=== PATIENT | female | born 1965 | race Caucasian/White ===

== ENCOUNTER 2016-10-16 21:06 | Emergency (ER) | payer SELFPAY ==
[~2016-10-16] VITALS: Ht 165.1 cm; Wt 75.3 kg
[~2016-10-16 21:06] MED LIST: CIPR500T4 PO; DEXT15TA PO; MEDR4PAK3 PO; METR-1 PO; PERC5TAB12 PO
[2016-10-16 21:14] VITALS: BP 139/90; PULSE 68; RESP 18; TEMP 97.7; O2SAT 97
[2016-10-16] MEDS ORDERED: MELA1TAB18 PO (21:38)
[2016-10-16] MEDS ORDERED: IBUP200C17 PO (21:38)
[2016-10-16] MEDS ORDERED: ASPI81TA5 PO (21:38)
--- NOTE | 2016-10-16 21:45 | PD ---
HPI Chief Complaint: Abdominal Pain Time Seen by Provider: 21:35 Travel History International Travel<30 days: No Contact w/Intl Traveler<30days: No Traveled to known affect area: No History of Present Illness HPI This 51-year-old female is complaining of lower abdominal pain. She says she been having lower abdominal pain for the past 2-1/2 weeks. Tonight it seems worse on the left side. At other days it has been in the midline. She was here a year ago and was diagnosed with diverticulitis. She is not sure if this same pain. She is not aware of fever or chills. This been no vomiting or diarrhea. She has a history of a hysterectomy. PFS Past Medical History ADD: Yes Blood Disorders: No Cancer: No Cardiovascular Problems: No Chemotherapy: No Cerebrovascular Accident: No Diabetes: Yes (Borderline) Patient Takes Glucophage: No Diminished Hearing: No Genitourinary: No Headaches: Yes Immune Disorder: No Musculoskeletal: Yes Neurologic: Yes Reproductive: No Respiratory: No Immunizations Current: No Migraines: Yes Myocardial Infarction: No Radiation Therapy: Yes Renal Failure: No Ulcer: No Tetanus Vaccination: Unknown ?: Unknown Past Surgical History Abdominal Surgery: Yes (ABDOMENOPLASTY) Genitourinary Surgery: Yes (BLADDER SUSPENSION) Hysterectomy: Yes (Parital) Neurologic Surgery: No Tonsillectomy: Yes Other Surgery: Yes (RHINOPLASTY) Social History Alcohol Use: Yes (OCCASIONALLY) Tobacco Use: No Substance Use: No Allergies-Medications (Allergen,Severity, Reaction): Coded Allergies: Bactrim (Verified Allergy, Severe, 10/16/16) Benadryl (Verified Allergy, Severe, 10/16/16) Keflex (Verified Allergy, Severe, 10/16/16) Penicillin (Verified Allergy, Severe, 10/16/16) Reported Meds & Prescriptions Reported Meds & Active Scripts Active Reported Advil Liqui-Gels (Ibuprofen) 200 Mg Capsule PO HS Aspirin DR (Aspirin) 81 Mg Tabdr 81 Mg PO DAILY Melatonin 10 Mg Tab 10 Mg PO HS PRN Review of Systems General / Constitutional: No: Fever Eyes: No: Diploplia, Blurred Vision HENT: No: Headaches, Vertigo Cardiovascular: No: Chest Pain or Discomfort, Palpitations Respiratory: No: Cough, Shortness of Breath Gastrointestinal: Positive: Abdominal Pain, No: Vomiting Genitourinary: No: Frequency, Dysuria Musculoskeletal: No: Myalgias Neurologic: No: Weakness, Dizziness Physical Exam Narrative GENERAL: Well-developed female SKIN: Focused skin assessment warm/dry. HEAD: Atraumatic. Normocephalic. EYES: Pupils equal and round. No scleral icterus. No injection or drainage. ENT: No nasal bleeding or discharge. Mucous membranes pink and moist. NECK: Trachea midline. No JVD. CARDIOVASCULAR: Regular rate and rhythm. No murmur appreciated. RESPIRATORY: No accessory muscle use. Clear to auscultation. Breath sounds equal bilaterally. GASTROINTESTINAL: Abdomen soft, there is some lower abdominal tenderness more so on the left side. No discrete masses felt MUSCULOSKELETAL: No obvious deformities. No clubbing. No cyanosis. No edema. NEUROLOGICAL: Awake and alert. No obvious cranial nerve deficits. Motor grossly within normal limits. Normal speech. PSYCHIATRIC: Appropriate mood and affect; insight and judgment normal. Data Data Last Documented VS Vital Signs Date Time Temp Pulse Resp B/P Pulse Ox O2 Delivery O2 Flow Rate FiO2 10/16/16 21:14 97.7 68 18 139/90 97 Orders Complete Blood Count With Diff (10/16/16 21:41) Comprehensive Metabolic Panel (10/16/16 21:41) Gc And Chlamydia Pcr (10/16/16 21:41) Urinalysis - C+S If Indicated (10/16/16 21:41) Ct Abd/Pel W Iv Contrast(Rout) (10/16/16 21:41) Ondansetron Inj (Zofran Inj) (10/16/16 22:00) Ketorolac Inj (Toradol Inj) (10/16/16 22:00) Iohexol 350 Inj (Omnipaque 350 Inj) (10/16/16 22:58) Labs Laboratory Tests Test 10/16/16 22:00 White Blood Count 9.6 TH/MM3 Red Blood Count 4.38 MIL/MM3 Hemoglobin 13.7 GM/DL Hematocrit 38.9 % Mean Corpuscular Volume 88.7 FL Mean Corpuscular Hemoglobin 31.2 PG Mean Corpuscular Hemoglobin 35.2 % Concent Red Cell Distribution Width 12.3 % Platelet Count 216 TH/MM3 Mean Platelet Volume 8.1 FL Neutrophils (%) (Auto) 55.4 % Lymphocytes (%) (Auto) 33.5 % Monocytes (%) (Auto) 6.9 % Eosinophils (%) (Auto) 3.3 % Basophils (%) (Auto) 0.9 % Neutrophils # (Auto) 5.3 TH/MM3 Lymphocytes # (Auto) 3.2 TH/MM3 Monocytes # (Auto) 0.7 TH/MM3 Eosinophils # (Auto) 0.3 TH/MM3 Basophils # (Auto) 0.1 TH/MM3 CBC Comment DIFF FINAL Differential Comment Urine Color YELLOW Urine Turbidity CLEAR Urine pH 6.0 Urine Specific [place] 1.017 Urine Protein NEG mg/dL Urine Glucose (UA) NEG mg/dL Urine Ketones NEG mg/dL Urine Occult Blood NEG Urine Nitrite NEG Urine Bilirubin NEG Urine Leukocyte Esterase NEG Urine WBC 0-2 /hpf Urine Squamous Epithelial 0-5 /hpf Cells Urine Bacteria RARE /hpf Microscopic Urinalysis Comment CULT NOT INDICATED Sodium Level 143 MEQ/L Potassium Level 3.7 MEQ/L Chloride Level 108 MEQ/L Carbon Dioxide Level 29.2 MEQ/L Anion Gap 6 MEQ/L Blood Urea Nitrogen 15 MG/DL Creatinine 1.00 MG/DL Estimat Glomerular Filtration 58 ML/MIN Rate Random Glucose 111 MG/DL Calcium Level 8.4 MG/DL Total Bilirubin 0.2 MG/DL Aspartate Amino Transf 16 U/L (AST/SGOT) Alanine Aminotransferase 26 U/L (ALT/SGPT) Alkaline Phosphatase 77 U/L Total Protein 6.6 GM/DL Albumin 3.7 GM/DL [facility] Medical Decision Making Medical Screen Exam Complete: Yes Emergency Medical Condition: Yes Medical Record Reviewed: Yes Differential Diagnosis Differential includes diverticulitis, nonspecific abdominal pain, constipation Narrative Course Hemoglobin is 13.7. White count is 9.6. V1 is 20. Urine is negative for infection. CT abdomen and pelvis was obtained and has been read as negative. I discussed the patient's findings with the patient. I am going to treat her for possible diverticulitis in case this is developing but not yet apparent on the scan Diagnosis Primary Impression: Diverticulitis Disposition: 01 DISCHARGE HOME Condition: Stable Bhaskar Gao MD Oct 16, 2016 21:45 Bhaskar Gao MD Oct 16, 2016 21:45
[2016-10-16] MEDS ORDERED: ONDANSETRON HCL 4 MG/2 ML VIAL IV PUSH ONE (22:00)
[2016-10-16] MEDS ORDERED: KETOROLAC TROMETHAMINE 30 MG/ML (IVP) VIAL IV PUSH ONE (22:00)
[2016-10-16 22:08] LABS: AUTOMATED NEUTROPHIL # 5.3 TH/MM3 (1.8-7.7); BASOPHIL # 0.1 TH/MM3 (0-0.2); BASOPHIL % 0.9 % (0.0-2.0); BLOOD, URINE NEG (NEG); EOSINOPHIL # 0.3 TH/MM3 (0-0.4); EOSINOPHIL % 3.3 % (0.0-4.0); GLUCOSE,URINE NEG (NEG); HEMATOCRIT 38.9 % (35.0-46.0); HEMO FLAGS DIFF FINAL; KETONE, URINE NEG (NEG); LYMPH % 33.5 % (9.0-44.0); LYMPHOCYTE # 3.2 TH/MM3 (1.0-4.8); MEAN CELL VOLUME 88.7 FL (80.0-100.0); MEAN CORPUSCULAR HEMOGLOBIN 31.2 PG (27.0-34.0); MEAN CORPUSCULAR HGB CONC 35.2 % (32.0-36.0); MONO % 6.9 % (0.0-8.0); NEUT % 55.4 % (16.0-70.0); NITRITE,URINE NEG (NEG); PLATELET COUNT 216 TH/MM3 (150-450); RED BLOOD COUNT 4.38 MIL/MM3 (4.00-5.30); RED CELL DISTRIBUTION WIDTH 12.3 % (11.6-17.2); WHITE BLOOD COUNT 9.6 TH/MM3 (4.0-11.0)
[2016-10-16 22:17] LABS: URINE COLOR YELLOW (YELLW/STRAW)
[2016-10-16 22:18] LABS: BACTERIA, URINE RARE /hpf; SQUAMOUS EPITHELIAL CELL URINE 0-5 /hpf (0-5); WBC, URINE 0-2 /hpf (0-5)
[2016-10-16 22:19] LABS: CHLORIDE 108 MEQ/L (98-107); COMMENT (UR) CULT NOT INDICATED; CULTURE IF INDICATED CULT NOT INDICATED; POTASSIUM 3.7 MEQ/L (3.5-5.1); SODIUM (NA) 143 MEQ/L (136-145)
[2016-10-16 22:22] LABS: ANION GAP 6 MEQ/L (5-15); BICARBONATE 29.2 MEQ/L (21.0-32.0)
[2016-10-16 22:23] LABS: BLOOD UREA NITROGEN 15 MG/DL (7-18)
[2016-10-16 22:25] VITALS: BP 117/71; PULSE 75; RESP 17; O2SAT 97
[2016-10-16 22:26] LABS: ALT (GPT) 26 U/L (10-53); AST (GOT) 16 U/L (15-37); GLOMERULAR FILTRATION RATE 58 ML/MIN (>89)
[2016-10-16 22:27] LABS: TOTAL BILIRUBIN ADULT 0.2 MG/DL (0.2-1.0)
[2016-10-16 22:28] LABS: ALKALINE PHOSPHATASE 77 U/L (45-117)
[2016-10-16] MEDS ORDERED: IOHEXOL 350 MG/ML 10 ML VIAL (for RAD DIAG) IV ONE (22:58)
[2016-10-16 22:59] VITALS: RESP 16
--- NOTE | 2016-10-16 23:06 | RADHPO ---
EXAM DATE/TIME: 10/16/2016 22:39 [place] COMPARISON: No previous studies available for comparison. INDICATIONS : Bilateral lower quadrant abdominal pain. IV CONTRAST: 100 cc Omnipaque 350 (iohexol) IV ORAL CONTRAST: No oral contrast ingested. RADIATION DOSE: 12.48 CTDIvol (mGy) MEDICAL HISTORY : None SURGICAL HISTORY : Hysterectomy. Abdomenoplasty, bladder suspension. ENCOUNTER: Initial ACUITY: 3 weeks PAIN SCALE: 6/10 LOCATION: Bilateral lower quadrant TECHNIQUE: Volumetric scanning of the abdomen and pelvis was performed. Using automated exposure control and ad justment of the mA and/or kV according to patient size, radiation dose was kept as low as reasonably achievable to obtain optimal diagnostic quality images. FINDINGS: LOWER LUNGS: The visualized lower lungs are clear. LIVER: Homogeneous density without lesion. There is no dilation of the biliary tree. No calcified gallston es. SPLEEN: Normal size without lesion. PANCREAS: Within normal limits. KIDNEYS: Normal in size and shape. There is no mass, stone or hydronephrosis. ADRENAL GLANDS: Within normal limits. VASCULAR: There is no aortic aneurysm. BOWEL/MESENTERY: The stomach, small bowel, and colon demonstrate no acute abnormality. There is no free intraperitone al air or fluid. ABDOMINAL WALL: Within normal limits. RETROPERITONEUM: There is no lymphadenopathy. BLADDER: No wall thickening or mass. REPRODUCTIVE: Within normal limits. INGUINAL: There is no lymphadenopathy or hernia. MUSCULOSKELETAL: Within normal limits for patient age. CONCLUSION: Normal examination. Yohan Medina MD on October 16, 2016 at 23:02 Board Certified Radiologist. This report was verified electronically.
[2016-10-16] MEDS ORDERED: CIPR-9 PO (23:22)
[2016-10-16] MEDS ORDERED: METR-1 PO (23:22)
[2016-10-16] MEDS ORDERED: CIPROFLOXACIN 500 MG TAB PO ONE (23:30)
[2016-10-16] MEDS ORDERED: metroNIDAZOLE 500 MG TAB PO ONE (23:30)
[2016-10-16 23:45] VITALS: BP 118/76
[2016-10-17 07:18] LABS: CHLAMYDIA PCR NOT DETECTED (NOT DETECT); NEISSERIA PCR NOT DETECTED (NOT DETECT)
== END 2016-10-16 23:46 | disposition home or self-care (01) ==
LOC: PHED 21:06
DX: K57.92 Diverticulitis of intestine, part unspecified, without perforation or abscess without bleeding (principal); E11.9 Type 2 diabetes mellitus without complications
CPT/HCPCS: 74177; 80053; 81001; 85025; 87491; 87591; 96374; 96375; 99285; J1885; J2405; Q9967

== ENCOUNTER 2017-06-20 07:39 | Emergency (ER) | payer SELFPAY ==
[~2017-06-20] VITALS: Ht 165.1 cm; Wt 76.0 kg
[~2017-06-20 07:39] MED LIST changes: +CIPR-9 PO; -CIPR500T4 PO; -DEXT15TA PO; +ECASA81 PO; +IBUP200C17 PO; -MEDR4PAK3 PO; +MELA1TAB18 PO; -PERC5TAB12 PO
[2017-06-20 07:42] VITALS: BP 120/80; PULSE 70; RESP 17; TEMP 97.4; O2SAT 97
[2017-06-20] MEDS ORDERED: SODIUM CHLOR 0.9% 1000 ML INJ 1,000 ML IV SCH (08:37)
--- NOTE | 2017-06-20 08:41 | PD ---
HPI Chief Complaint: Abdominal Pain Time Seen by Provider: 08:06 Travel History International Travel<30 days: No Contact w/Intl Traveler<30days: No Traveled to known affect area: No History of Present Illness HPI 51-year-old female presents emergency department with diffuse abdominal pain for the past 6 days, it was nausea vomiting worse after she eats. She cannot localize the pain states pain is cramping, intermittent, diffuse abdomen, never had this before, no alleviating symptoms exacerbated by food. PFSH Past Medical History ADD: Yes Blood Disorders: No Cancer: No Cardiovascular Problems: No Chemotherapy: No Cerebrovascular Accident: No Diabetes: Yes (Borderline- diet control) Patient Takes Glucophage: No Diminished Hearing: No Genitourinary: No Headaches: Yes Immune Disorder: No Implanted Vascular Access Dvce: No Musculoskeletal: Yes Neurologic: Yes Reproductive: No Respiratory: No Immunizations Current: No Migraines: Yes Myocardial Infarction: No Radiation Therapy: Yes Renal Failure: No Ulcer: No Tetanus Vaccination: Unknown Influenza Vaccination: No ?: Not Past Surgical History Abdominal Surgery: Yes (ABDOMENOPLASTY) Genitourinary Surgery: Yes (BLADDER SUSPENSION) Hysterectomy: Yes (Parital) Neurologic Surgery: No Tonsillectomy: Yes Other Surgery: Yes (RHINOPLASTY) Social History Alcohol Use: Yes (OCCASIONALLY, beer wine ) Tobacco Use: No Substance Use: No Allergies-Medications (Allergen,Severity, Reaction): Coded Allergies: cephalexin (Unverified Allergy, Severe, 06/20/17) diphenhydramine (Unverified Allergy, Severe, 06/20/17) penicillin G (Unverified Allergy, Severe, 06/20/17) sulfamethoxazole (Unverified Allergy, Severe, 06/20/17) trimethoprim (Unverified Allergy, Severe, 06/20/17) Reported Meds & Prescriptions Reported Meds & Active Scripts Active Zofran Odt (Ondansetron Odt) 4 Mg Tab 4 Mg SL Q6HR PRN Cipro (Ciprofloxacin HCl) 500 Mg Tab 500 Mg PO BID Flagyl (Metronidazole) 500 Mg Tab 500 Mg PO BID 7 Days Review of Systems Except as stated in HPI: all other systems reviewed are Neg Physical Exam Narrative GENERAL: Well-developed well-nourished in obvious distress SKIN: Focused skin assessment warm/dry. HEAD: Atraumatic. Normocephalic. EYES: Pupils equal and round. No scleral icterus. No injection or drainage. ENT: No nasal bleeding or discharge. Mucous membranes pink and moist. NECK: Trachea midline. No JVD. CARDIOVASCULAR: Regular rate and rhythm. No murmur appreciated. RESPIRATORY: No accessory muscle use. Clear to auscultation. Breath sounds equal bilaterally. GASTROINTESTINAL: Abdomen soft, non-tender, nondistended. Hepatic and splenic margins not palpable. No rebound or percussive tenderness, Rovsing sign negative, psoas and obturator signs negative, Olmedo sign negative. GENITOURINARY: Deferred by patient MUSCULOSKELETAL: No obvious deformities. No clubbing. No cyanosis. No edema. NEUROLOGICAL: Awake and alert. No obvious cranial nerve deficits. Motor grossly within normal limits. Normal speech. PSYCHIATRIC: Appropriate mood and affect; insight and judgment normal. Data Data Last Documented VS Vital Signs Date Time Temp Pulse Resp B/P (MAP) Pulse Ox O2 Delivery O2 Flow Rate FiO2 06/20/17 10:05 74 16 118/68 (85) 06/20/17 08:42 99 Room Air 06/20/17 07:42 97.4 Orders Orders Complete Blood Count With Diff (06/20/17 08:37) Comprehensive Metabolic Panel (06/20/17 08:37) Lipase (06/20/17 08:37) Urinalysis - C+S If Indicated (06/20/17 08:37) Iv Access Insert/Monitor (06/20/17 08:37) Ecg Monitoring (06/20/17 08:37) Oximetry (06/20/17 08:37) Ondansetron Inj (Zofran Inj) (06/20/17 08:45) Sodium Chlor 0.9% 1000 Ml Inj (Ns 1000 M (06/20/17 08:37) Sodium Chloride 0.9% Flush (Ns Flush) (06/20/17 08:45) Ketorolac Inj (Toradol Inj) (06/20/17 08:45) Urine Culture (06/20/17 08:30) Ed Discharge Order (06/20/17 09:33) Labs Laboratory Tests Test 06/20/17 08:30 2 08:40 Urine Collection Type VOIDED Urine Color YELLOW Urine Turbidity CLOUDY Urine pH 6.5 Urine Specific [place] 1.022 Urine Protein NEG mg/dL Urine Glucose (UA) NEG mg/dL Urine Ketones NEG mg/dL Urine Occult Blood NEG Urine Nitrite POS Urine Bilirubin NEG Urine Leukocyte Esterase SMALL Urine WBC 25-49 /hpf Urine WBC Clumps RARE Urine Squamous Epithelial Cells 0-3 /hpf Urine Bacteria MANY /hpf Microscopic Urinalysis Comment CULTURE INDICATED White Blood Count 5.6 TH/MM3 Red Blood Count 4.51 MIL/MM3 Hemoglobin 13.4 GM/DL Hematocrit 39.8 % Mean Corpuscular Volume 88.3 FL Mean Corpuscular Hemoglobin 29.8 PG Mean Corpuscular Hemoglobin Concent 33.8 % Red Cell Distribution Width 12.8 % Platelet Count 201 TH/MM3 Mean Platelet Volume 7.9 FL Neutrophils (%) (Auto) 40.3 % Lymphocytes (%) (Auto) 42.9 % Monocytes (%) (Auto) 11.8 % Eosinophils (%) (Auto) 4.1 % Basophils (%) (Auto) 0.9 % Neutrophils # (Auto) 2.3 TH/MM3 Lymphocytes # (Auto) 2.3 TH/MM3 Monocytes # (Auto) 0.7 TH/MM3 Eosinophils # (Auto) 0.2 TH/MM3 Basophils # (Auto) 0.1 TH/MM3 CBC Comment DIFF FINAL Differential Comment Blood Urea Nitrogen 16 MG/DL Creatinine 0.82 MG/DL Random Glucose 101 MG/DL Total Protein 6.6 GM/DL Albumin 3.6 GM/DL Calcium Level 8.5 MG/DL Alkaline Phosphatase 68 U/L Aspartate Amino Transf (AST/SGOT) 40 U/L Alanine Aminotransferase (ALT/SGPT) 42 U/L Total Bilirubin 0.4 MG/DL Sodium Level 138 MEQ/L Potassium Level 3.8 MEQ/L Chloride Level 106 MEQ/L Carbon Dioxide Level 25.5 MEQ/L Anion Gap 7 MEQ/L Estimat Glomerular Filtration Rate 73 ML/MIN Lipase 83 U/L [facility] Medical Decision Making Medical Screen Exam Complete: Yes Emergency Medical Condition: Yes Differential Diagnosis Acute abdomen unlikely, UTI, endometriosis, cholecystitis, pancreatitis, gastritis, gastroenteritis. Narrative Course Patient room to the emergency department, very comfortable on arrival with a benign exam, at this time given her diarrhea symptoms were placed on Cipro and Flagyl Cipro chosen secondary to coverage for her UTI as well. Discussed follow -up with a primary care physician or [facility] and return to the right ear. She is stable for discharge at this time. No definitive cause of her abdominal pain got isolated, CT scan unlikely to be of benefit. Diagnosis Primary Impression: Pain, abdominal, nonspecific Additional Impressions: N&V (nausea and vomiting) Urinary tract infection Scripts Ondansetron Odt (Zofran Odt) 4 Mg Tab 4 MG SL Q6HR Y for Nausea/Vomiting, #20 TAB 0 Refills Prov: Johnathon Lanier MD 06/20/17 Ciprofloxacin (Cipro) 500 Mg Tab 500 MG PO BID for Infection, #14 TAB 0 Refills Prov: Johnathon Lanier MD 06/20/17 Metronidazole (Flagyl) 500 Mg Tab 500 MG PO BID for Infection for 7 Days, #14 TAB 0 Refills Prov: Johnathon Lanier MD 06/20/17 Disposition: 01 DISCHARGE HOME Condition: Stable Johnathon Lanier MD Jun 20, 2017 08:41
[2017-06-20 08:42] VITALS: RESP 16; O2SAT 99
[2017-06-20] MEDS ORDERED: KETOROLAC TROMETHAMINE 30 MG/ML (IVP) VIAL IVP ONE (08:45)
[2017-06-20] MEDS ORDERED: ONDANSETRON HCL 4 MG/2 ML VIAL IVP ONE (08:45)
[2017-06-20] MEDS ORDERED: SODIUM CHLORIDE 0.9% FLUSH 10 ML FLUSH IV FLUSH PRN (08:45)
[2017-06-20 08:48] LABS: AUTOMATED NEUTROPHIL # 2.3 TH/MM3 (1.8-7.7); BASOPHIL # 0.1 TH/MM3 (0-0.2); BASOPHIL % 0.9 % (0.0-2.0); EOSINOPHIL # 0.2 TH/MM3 (0-0.4); EOSINOPHIL % 4.1 % (0.0-4.0); HEMATOCRIT 39.8 % (35.0-46.0); HEMOGLOBIN 13.4 GM/DL (11.6-15.3); LYMPH % 42.9 % (9.0-44.0); LYMPHOCYTE # 2.3 TH/MM3 (1.0-4.8); MEAN CELL VOLUME 88.3 FL (80.0-100.0); MEAN CORPUSCULAR HEMOGLOBIN 29.8 PG (27.0-34.0); MEAN CORPUSCULAR HGB CONC 33.8 % (32.0-36.0); MEAN PLATELET VOLUME 7.9 FL (7.0-11.0); MONO % 11.8 % (0.0-8.0); MONOCYTE # 0.7 TH/MM3 (0-0.9); NEUT % 40.3 % (16.0-70.0); PLATELET COUNT 201 TH/MM3 (150-450); RED BLOOD COUNT 4.51 MIL/MM3 (4.00-5.30); RED CELL DISTRIBUTION WIDTH 12.8 % (11.6-17.2); WHITE BLOOD COUNT 5.6 TH/MM3 (4.0-11.0)
[2017-06-20 08:55] LABS: BILIRUBIN, URINE NEG (NEG); BLOOD, URINE NEG (NEG); GLUCOSE,URINE NEG (NEG); KETONE, URINE NEG (NEG); NITRITE,URINE POS (NEG); PH, URINE 6.5 (5.0-8.5); URINE LEUKOCYTE ESTERASE SMALL (NEG)
[2017-06-20 08:57] LABS: CHLORIDE 106 MEQ/L (98-107); SODIUM (NA) 138 MEQ/L (136-145)
[2017-06-20 09:00] LABS: ALBUMIN 3.6 GM/DL (3.4-5.0); BICARBONATE 25.5 MEQ/L (21.0-32.0); CALCIUM 8.5 MG/DL (8.5-10.1); GLUCOSE,RANDOM 101 MG/DL (74-106)
[2017-06-20 09:01] LABS: BLOOD UREA NITROGEN 16 MG/DL (7-18)
[2017-06-20 09:02] LABS: URINE COLOR YELLOW (YELLW/STRAW)
[2017-06-20 09:03] LABS: ALT (GPT) 42 U/L (10-53); AST (GOT) 40 U/L (15-37); CREATININE 0.82 MG/DL (0.50-1.00); GLOMERULAR FILTRATION RATE 73 ML/MIN (>89)
[2017-06-20 09:03] LABS: BACTERIA, URINE MANY /hpf; SQUAMOUS EPITHELIAL CELL URINE 0-3 /hpf (0-5); WHITE BLOOD CELL CLUMPS RARE
[2017-06-20 09:05] LABS: TOTAL BILIRUBIN ADULT 0.4 MG/DL (0.2-1.0); TOTAL PROTEIN 6.6 GM/DL (6.4-8.2)
[2017-06-20 09:06] LABS: ALKALINE PHOSPHATASE 68 U/L (45-117)
[2017-06-20] MEDS ORDERED: ZOFR4TAB PO (09:33)
[2017-06-20] MEDS ORDERED: METR-1 PO (09:33)
[2017-06-20] MEDS ORDERED: CIPR-9 PO (09:33)
[2017-06-20] MEDS ORDERED: ZOFR4TAB3 SL (09:44)
[2017-06-20 09:45] VITALS: RESP 16
[2017-06-20 10:05] VITALS: BP 118/68
== END 2017-06-20 10:14 | disposition home or self-care (01) ==
LOC: PHED 07:39
DX: R10.9 Unspecified abdominal pain (principal); R11.2 Nausea with vomiting, unspecified; N39.0 Urinary tract infection, site not specified; B96.20 Unspecified Escherichia coli [E. coli] as the cause of diseases classified elsewhere; R73.03 Prediabetes; Z88.0 Allergy status to penicillin; Z88.2 Allergy status to sulfonamides; Z88.8 Allergy status to other drugs, medicaments and biological substances
CPT/HCPCS: 80053; 81001; 83690; 85025; 87077; 87086; 87186; 96361; 96374; 96375; 99284; J1885; J2405; J7030

== ENCOUNTER 2018-02-11 13:39 | Observation (INO) ==
--- NOTE | 2018-02-11 14:15 | ED ---
HPI General Chief Complaint: Chest Pain Stated Complaint: CP Time Seen by Provider: 02/11/18 13:59 History of Present Illness HPI narrative: This patient complains of chest pain. Location is center sternum. Started an hour ago and lasted 10 minutes. Mica like a squeezing and aching pressure. It has resolved and she feels improved. Not exertionally induced. She has no personal history of cardiac disease. No injury. No fever. No alleviating factors. No exacerbating factors. Severity was moderate Related Data Home Medications Medication Instructions Recorded Confirmed aspirin 325 mg PO HS 02/10/18 02/11/18 Previous Rx's Medication Instructions Recorded ciprofloxacin HCl [Cipro] 500 mg PO Q12H 5 Days #10 tab 02/10/18 Allergies Allergy/AdvReac Type Severity Reaction Status Date / Time cephalexin Allergy Severe Hives Verified 02/10/18 18:03 diphenhydramine Allergy Severe Difficulty Verified 02/10/18 18:03 Breathing penicillin G Allergy Severe Anaphylaxis Verified 02/10/18 18:03 sulfamethoxazole Allergy Severe Anaphylaxis Verified 02/10/18 18:03 trimethoprim Allergy Severe Anaphylaxis Verified 02/10/18 18:03 Review of Systems ROS: all other systems reviewed are negative PMFSH Social History Social History Substance History: No History of Abuse Smoking Status: Never smoker How Often Do You Have a Drink Containing Alcohol: 2 to 4 times a month Recent Travel in [facility] within the Last 8 Weeks: No Recent Out of Country Travel within the Last 8 Weeks: No Immunization History Tetanus Immunization: Unsure Hx Influenza Vaccine This Season: No Exam Narrative Exam Narrative: GENERAL: Well-nourished, well-developed patient in no apparent distress. SKIN: Focused skin assessment reveals no rash and nodules. Skin is Warm and dry. HEAD: Atraumatic. Normocephalic. EYES: Pupils equal and round. No scleral icterus. No injection or drainage. ENT: No nasal bleeding or discharge. Mucous membranes pink and moist. NECK: Trachea midline. No JVD. CARDIOVASCULAR: Regular rate and rhythm. No murmur appreciated. RESPIRATORY: No accessory muscle use. Clear to auscultation. Breath sounds equal bilaterally. GASTROINTESTINAL: Abdomen soft, non-tender, nondistended. Hepatic and splenic margins not palpable. MUSCULOSKELETAL: No obvious deformities. No clubbing. No cyanosis. No edema. NEUROLOGICAL: Awake and alert. No obvious cranial nerve deficits. Motor grossly within normal limits. Normal speech. PSYCHIATRIC: Appropriate mood and affect; insight and judgment normal. Course Initial Documented Vital Signs Temperature 97.9 F 02/11/18 13:43 Pulse Rate 67 02/11/18 13:43 Respiratory Rate 20 02/11/18 13:43 Blood Pressure 143/86 H 02/11/18 13:43 Pulse Oximetry 97 02/11/18 13:43 Last Documented Vital Signs Temperature 97.9 F 02/11/18 13:43 Pulse Rate 58 L 02/11/18 14:11 Respiratory Rate 18 02/11/18 14:11 Blood Pressure 151/102 H 02/11/18 14:11 Pulse Oximetry 98 02/11/18 14:11 Medical Decision Making MDM Narrative Medical decision making narrative: Work up here is negative. She will be a 23- hour observation in the chest pain center in order to rule out cardiac cause of her symptoms. Medical Screen Exam Complete: Yes Emergency Medical Condition: Yes Differential Diagnosis Differential Diagnosis: Differential diagnosis includes OH, angina, pericarditis , pleurisy, GERD, anxiety. Medical Records Medical records reviewed: Yes I reviewed the patient's medical records. Reviewed her visit from last night. She had extensive workup for leg swelling. She ended up with EKG and leg ultrasound and lab studies and CTA of the chest negative for PE. Cardiac enzymes for 1 set were negative. Lab Data Lab results reviewed: Yes I reviewed the patient's lab results. Lab results narrative: Cardiac enzymes are normal Lab Results 02/11/18 02/11/18 Range/Units 14:10 14:10 Total Creatine Kinase 80 Cancelled (26-192) U/L Troponin I Less than 0.02 L (0.02-0.05) ng/mL ECG Data EKG Prior to Arrival: No Attestation: I personally reviewed and interpreted this ECG as follows: Prior ECG tracings: not available for review Interpretation: EKG shows sinus rhythm. There are no acute ST elevations. Her rate and DC interval and axis are normal Discharge Plan Discharge Disposition Patient Disposition: 30 Still Patient Discharge Details Diagnosis: Chest pain in adult Physicians Team ED Provider: Edouard Knowles Primary Care Provider: Primary Care Eva Obregon Rxs /Orders / Referrals /Forms Prescriptions: No Action aspirin 325 mg Tablet 325 mg PO HS RF: 0 ciprofloxacin HCl [Cipro] 500 mg tablet 500 mg PO Q12H 5 Days Qty: 10 RF: 0 Discharge Instructions Patient Printed Instructions: Chest Pain (ED) Discharge Interventions Interventions: Vital Signs Last Done: 02/11/18 13:55 Status ED Status: With Doctor
[2018-02-11 14:48] LABS: Creatine Kinase 80 U/L (26-192)
[2018-02-11] MEDS ORDERED: Morphine Inj 4 MG/ML Vial IV.PUSH PRN (15:06)
--- NOTE | 2018-02-11 17:16 | P.HP ---
History of Present Illness Primary Care Physician: No Primary Care Physician Chief Complaint: chest pain History of Present Illness: This is a 52-year-old female patient with no known medical history presented to the ED with complaints of chest pain. Patient states that she got into the car today to go to a movie she developed a midsternal chest pain that was characterized as squeezing in nature, radiated up her neck and rated a 10 out of 10 at its worst on pain scale. Patient does admit to associated shortness of breath as well as sweating, denies any associated nausea or vomiting. She states that the pain lasted roughly 10 minutes and went away on its own without any known aggravating or alleviating factors. Patient states that this situation occurred roughly 3 times which prompted her presentation to the ED. Patient denies any recent illness including fever, chills, cough, shortness of breath, dumping, nausea, vomiting, diarrhea or dysuria. It should be noted that patient did travel recently to and from [place], driving up to 6 hours at a time. She does complain of bilateral lower extremity swelling, more prominent in her left side. Upon examination today her left side was extremely painful to palpation especially in the ankle area. She did present to the ED last evening and a left ankle xray was performed and unremarkable for any acute abnormality. A bilateral lower extremity US was also done and reviewed showing no DVT. A CTA ruled out PE. - Diagnosis (1) Chest pain in adult Review of Systems All other systems reviewed negative except as stated in [facility] - History History Provided By: Patient - Medical History Medical History: Medical History (Last Reviewed 02/11/18 @ 17:08 by Jocelynn Yañez) Diverticulosis - Surgical History Surgical History: Surgical History (Last Reviewed 02/11/18 @ 17:08 by Jocelynn Yañez) H/O abdominoplasty H/O rhinoplasty History of partial hysterectomy - Family History Family History: Family History (Last Updated 02/11/18 @ 17:08 by Jocelynn Yañez) Other Cardiovascular disease - Tobacco History Second Hand Smoke Exposure: No Smoking Status: Never smoker - Alcohol History How Often Do You Have a Drink Containing Alcohol: 2 to 4 times a month - Substance Use History Substance History: No History of Abuse - Travel History Recent Travel in the [facility] Within the Last 8 Weeks: No Recent Travel Out of the Country Within the Last 8 Weeks: No - Immunization History Tetanus Immunization: Unsure Hx Influenza Vaccine This Season: No Medications and Allergies Active Medications: Active Medications Aspirin (Aspirin) 325 mg PO DAILY FACUNDO Heparin Sodium (Porcine) (Heparin Inj) 5,000 units SQ Q12H FACUNDO Sodium Chloride (Ns Inj) 1,000 mls @ 75 mls/hr IV.CONT .[id number] FACUNDO Morphine Sulfate (Morphine Inj) 2 mg IV.PUSH Q4H PRN PRN Reason: Pain 3 to 6 Morphine Sulfate (Morphine Inj) 4 mg IV.PUSH Q4H PRN PRN Reason: Pain 7 to 10 Nitroglycerin (Nitrostat Sl) 0.4 mg SL Q5M PRN PRN Reason: CHEST PAIN Sodium Chloride (Ns Flush) 2 ml IV.FLUSH UNSCH PRN PRN Reason: FLUSH AFTER USING IV ACCESS Last Admin: 02/11/18 14:19 Dose: 2 ml Sodium Chloride (Ns Flush) 2 ml IV.FLUSH BID FACUNDO Sodium Chloride (Ns Flush) 2 ml IV.FLUSH PRN PRN PRN Reason: FLUSH AFTER USING IV ACCESS Allergies Allergy/AdvReac Type Severity Reaction Status Date / Time cephalexin Allergy Severe Hives Verified 02/10/18 18:03 diphenhydramine Allergy Severe Difficulty Verified 02/10/18 18:03 Breathing penicillin G Allergy Severe Anaphylaxis Verified 02/10/18 18:03 sulfamethoxazole Allergy Severe Anaphylaxis Verified 02/10/18 18:03 trimethoprim Allergy Severe Anaphylaxis Verified 02/10/18 18:03 Home Medications Medication Instructions Recorded Confirmed Type aspirin 325 mg PO HS 02/10/18 02/11/18 History Exam Vital signs: Vital Signs 02/11/18 13:43 02/11/18 13:55 02/11/18 14:11 Temperature 97.9 F Pulse Rate 67 60 58 L Respiratory Rate 20 18 18 Blood Pressure 143/86 H 141/95 H 151/102 H Pulse Oximetry 97 98 98 02/11/18 15:33 Temperature Pulse Rate 57 L Respiratory Rate 18 Blood Pressure 149/98 H Pulse Oximetry 98 Intake & Output 02/10/18 02/11/18 02/11/18 18:59 06:59 18:59 Weight 82 kg Narrative: GENERAL: Well-developed, well-nourished patient in [facility]. SKIN: Warm and dry. No rash. HEAD: Normocephalic. Atraumatic. EYES: Pupils equal and round. No scleral icterus. No injection or drainage. ENT: No nasal bleeding or discharge. Mucous membranes pink and moist. NECK: Supple. Trachea midline. CARDIOVASCULAR: Regular rate and rhythm. S1, S2 noted. No murmur appreciated. No chest pain to palpation. RESPIRATORY: No accessory muscle use. Clear to auscultation. Breath sounds equal bilaterally. GASTROINTESTINAL: Abdomen soft, non-tender, nondistended. Normoactive bowel sounds x4. MUSCULOSKELETAL: No obvious deformities. Extremities without clubbing, cyanosis. Bilateral lower extremity edema, 1+. Left ankle bruise, pain with range of motion. NEUROLOGICAL: Awake and alert. No obvious cranial nerve deficits. Motor grossly within normal limits. 5/5 muscle strength in bilateral upper and lower extremities. Normal speech. PSYCHIATRIC: Appropriate mood and affect; insight and judgment normal. Results - Labs Labs: Laboratory Results - last 24 hr 02/11/18 02/11/18 14:10 14:10 Total Creatine Kinase 80 Cancelled Troponin I Less than 0.02 L Caprini VTE Risk Assessment Caprini VTE Risk Assessment: No/Low Risk (score <= 1) Caprini Risk Assessment Model: Point Value = 1 Point Value = 2 Point Value = 3 Point Value = 5 Age 41-60 Minor surgery BMI > 25 kg/m2 Swollen legs Varicose veins or History of unexplained or recurrent spontaneous Oral contraceptives or hormone replacement Sepsis (< 1 month) Serious lung disease, including pneumonia (< 1 month) Abnormal pulmonary function Acute myocardial infarction Congestive heart failure (< 1 month) History of inflammatory bowel disease Medical patient at bed rest Age 61-74 Arthroscopic surgery Major open surgery (> 45 min) Laparoscopic surgery (> 45 min) Malignancy Confined to bed (> 72 hours) Immobilizing plaster cast Central venous access Age >= 75 History of VTE Family history of VTE Factor V Leiden Prothrombin [id number] Lupus anticoagulant Anticardiolipin antibodies Elevated serum homocysteine Heparin-induced thrombocytopenia Other congenital or acquired thrombophilia Stroke (< 1 month) Elective arthroplasty Hip, pelvis, or leg fracture Acute spinal cord injury (< 1 month) Prophylaxis Regimen: Total Risk Factor Score Risk Level Prophylaxis Regimen 0-1 Low Early ambulation 2 Moderate Order ONE of the following: *Sequential Compression Device (SCD) *Heparin 5000 units SQ BID 3-4 Higher Order ONE of the following medications: *Heparin 5000 units SQ TID *Enoxaparin/Lovenox 40 mg SQ daily (WT < 150 kg, CrCl > 30 mL/min) *Enoxaparin/Lovenox 30 mg SQ daily (WT < 150 kg, CrCl > 10-29 mL/min) *Enoxaparin/Lovenox 30 mg SQ BID (WT < 150 kg, CrCl > 30 mL/min) AND/OR *Sequential Compression Device (SCD) 5 or more Highest Order ONE of the following medications: *Heparin 5000 units SQ TID (Preferred with Epidurals) *Enoxaparin/Lovenox 40 mg SQ daily (WT < 150 kg, CrCl > 30 mL/min) *Enoxaparin/Lovenox 30 mg SQ daily (WT < 150 kg, CrCl > 10-29 mL/min) *Enoxaparin/Lovenox 30 mg SQ BID (WT < 150 kg, CrCl > 30 mL/min) AND *Sequential Compression Device (SCD) Assessment and Plan - Assessment (1) Chest pain in adult Code(s): R07.9 - Chest pain, unspecified Status: Acute - Plan This is a 52-year-old female patient with: Chest pain -Patient has been admitted to the observation unit to rule out ACS. -Serial EKGs and serial troponins been ordered for ruling out ACS purposes. Initial troponin flat. Continue to monitor trend. -EKG reviewed, controlled heart rate with no ST changes to indicate ischemia. Will continue cardiac telemetry overnight, monitor for any arrhythmias. -Chest pain has resolved. Patient was given aspirin in ED. Nitroglycerin available as needed. Morphine IV available as needed per pain scale. -If ACS ruled out with serial EKGs and serial troponins, patient will undergo a cardiac nuclear stress test in a.m. to further rule out any ischemia. -Patient is unable to do the cardiac treadmill stress test secondary to left lower extremity pain with ambulation. -Chest x-ray reviewed, no acute abnormality seen. -Further auscultation treatment plan will depend on cardiac nuclear stress test results tomorrow. Stable at this time and agreeable to plan. Urinary tract infection -Patient presented to the ED yesterday, UA was done and urine culture pending. -Was prescribed ciprofloxacin outpatient although patient has not filled the prescription yet. -Will start on ciprofloxacin. Continue to monitor urine culture. Bilateral lower extremity edema -A bilateral ultrasound was done yesterday in the ED, no reports of DVT in either extremity. -A left ankle x-ray was also done with no acute abnormalities, soft tissue swelling present. -Supportive care. Encourage elevation of legs. DVT prophylaxis: SCDs/TEDs. Heparin.
[2018-02-11 17:55] LABS: Creatine Kinase 80 U/L (26-192)
[2018-02-11] MEDS: Heparin - SQ 10,000 UNITS/ML Vial SQ SCH (18:26)
[2018-02-11] MEDS: Ciprofloxacin 250 MG Tablet PO SCH (20:53)
[2018-02-11 21:03] LABS: Creatine Kinase 72 U/L (26-192)
[2018-02-11] MEDS: Morphine Inj 4 MG/ML Vial IV.PUSH PRN (21:14)
[2018-02-11] MEDS: Sod Chloride 0.9% Inj 1,000 ML IV.CONT SCH (21:15)
--- NOTE | 2018-02-11 21:47 | ECG ---
Date Performed: 02/11/2018 Time Performed: 20:09:33 PTAGE: 52 years EKG: Sinus rhythm POSSIBLE RIGHT VENTRICULAR CONDUCTION DELAY BORDERLINE ECG PREVIOUS TRACING : 02/11/2018 17.12 Since the previous tracing, no significant change noted DOCTOR: Kianna Linda Interpretating Date/Time 02/11/2018 21:45:10
--- NOTE | 2018-02-11 21:55 | ECG ---
Date Performed: 02/11/2018 Time Performed: 17:12:51 PTAGE: 52 years EKG: SINUS BRADYCARDIA POSSIBLE RIGHT VENTRICULAR CONDUCTION DELAY BORDERLINE ECG PREVIOUS TRACING : 02/11/2018 14.17 Since the previous tracing, no significant change noted DOCTOR: Kianna Linda Interpretating Date/Time 02/11/2018 21:54:23
--- NOTE | 2018-02-11 22:13 | ECG ---
Date Performed: 02/11/2018 Time Performed: 14:17:18 PTAGE: 52 years EKG: SINUS BRADYCARDIA POSSIBLE RIGHT VENTRICULAR CONDUCTION DELAY BORDERLINE ECG PREVIOUS TRACING : 02/10/2018 18.56 Since the previous tracing, no significant change noted DOCTOR: Kianna Linda Interpretating Date/Time 02/11/2018 22:12:04
[2018-02-12 05:35] VITALS: O2SAT 94
[2018-02-12] MEDS: Heparin - SQ 10,000 UNITS/ML Vial SQ SCH (05:59)
[2018-02-12] MEDS: Sod Chloride 0.9% Inj 1,000 ML IV.CONT SCH (06:00)
[2018-02-12] MEDS: Morphine Inj 4 MG/ML Vial IV.PUSH PRN (08:29)
[2018-02-12 08:41] VITALS: BP 153/86; PULSE 59; TEMP 97.6
[2018-02-12] MEDS ORDERED: Aspirin 325 MG Tablet PO SCH (09:00)
[2018-02-12 09:34] VITALS: RESP 18
[2018-02-12] MEDS: Ciprofloxacin 250 MG Tablet PO SCH (09:36)
--- NOTE | 2018-02-12 09:56 | P.PNIM ---
Subjective Interval history: Follow up chest pain. Patient seen and examined, lying in bed comfortably in [facility]. No reports of any acute events overnight. Chest pain has resolved. Awaiting nuclear stress test this morning. Will continue to monitor. VSS. Afebrile. Improvement of swelling in bilateral lower extremities. Physical Exam Vital signs: Vital Signs 02/11/18 13:43 02/11/18 13:55 02/11/18 14:11 Temperature 97.9 F Pulse Rate 67 60 58 L Respiratory Rate 20 18 18 Blood Pressure 143/86 H 141/95 H 151/102 H Pulse Oximetry 97 98 98 02/11/18 15:33 02/11/18 16:00 02/11/18 17:08 Temperature 97.3 F L Pulse Rate 57 L 57 L Respiratory Rate 18 21 Blood Pressure 149/98 H 113/63 Pulse Oximetry 98 99 98 02/11/18 20:00 02/11/18 20:15 02/12/18 00:00 Temperature 96.0 F L 97.7 F Pulse Rate 63 65 Respiratory Rate 16 16 Blood Pressure 143/94 H 129/86 Pulse Oximetry 96 97 96 02/12/18 04:00 02/12/18 08:00 02/12/18 09:26 Temperature 97.1 F L 97.6 F Pulse Rate 60 59 L Respiratory Rate 16 16 Blood Pressure 144/85 H 153/86 H Pulse Oximetry 94 L 94 L 94 L 02/12/18 09:33 Temperature Pulse Rate Respiratory Rate 18 Blood Pressure Pulse Oximetry Intake & Output 02/11/18 02/12/18 02/12/18 18:59 06:59 18:59 Intake Total 1000 / 1000 Balance 1000 / 1000 Weight 82 kg 82 kg Intake: IV 800 / 800 NS Inj 1,000 ML @ 75 mls/hr IV. 800 / 800 CONT .[id number] FACUNDO Rx#: [id number] Oral 200 / 200 Other: # Voids 3 Narrative: GENERAL: Well-developed, well-nourished patient in [facility]. SKIN: Warm and dry. No rash. HEAD: Normocephalic. Atraumatic. EYES: Pupils equal and round. No scleral icterus. No injection or drainage. ENT: No nasal bleeding or discharge. Mucous membranes pink and moist. NECK: Supple. Trachea midline. CARDIOVASCULAR: Regular rate and rhythm. S1, S2 noted. No murmur appreciated. No chest pain to palpation. RESPIRATORY: No accessory muscle use. Clear to auscultation. Breath sounds equal bilaterally. GASTROINTESTINAL: Abdomen soft, non-tender, nondistended. Normoactive bowel sounds x4. MUSCULOSKELETAL: No obvious deformities. Extremities without clubbing, cyanosis. Bilateral lower extremity edema, trace. Left ankle bruise, pain with range of motion. NEUROLOGICAL: Awake and alert. No obvious cranial nerve deficits. Motor grossly within normal limits. 5/5 muscle strength in bilateral upper and lower extremities. Normal speech. PSYCHIATRIC: Appropriate mood and affect; insight and judgment normal. Results - Labs CBC & Chem 7: 02/12/18 08:50 Laboratory Results - last 24 hr 02/11/18 02/11/18 02/11/18 14:10 14:10 17:17 Total Creatine Kinase 80 Cancelled 80 Troponin I Less than 0.02 L Less than 0.02 L 02/11/18 20:17 Total Creatine Kinase 72 Troponin I Less than 0.02 L Assessment and Plan - Assessment (1) Chest pain in adult Code(s): R07.9 - Chest pain, unspecified Status: Acute - Plan This is a 52-year-old female patient with: Chest pain. Resoled. -Patient has been admitted to the observation unit to rule out ACS. -Serial EKGs and serial troponins been ordered for ruling out ACS purposes. Troponins flat. -EKG reviewed, controlled heart rate with no ST changes to indicate ischemia. Will continue cardiac telemetry, monitor for any arrhythmias. None overnight. -Chest pain has resolved. Patient was given aspirin in ED. Nitroglycerin available as needed. Morphine IV available as needed per pain scale. -ACS ruled out with serial EKGs and serial troponins, patient will undergo a cardiac nuclear stress test today to further rule out any ischemia. -Patient is unable to do the cardiac treadmill stress test secondary to left lower extremity pain with ambulation. -Chest x-ray reviewed, no acute abnormality seen. -Further hospitalization and treatment plan will depend on cardiac nuclear stress test results. Urinary tract infection -Patient presented to the ED, UA was done and urine culture pending. -Was prescribed ciprofloxacin outpatient although patient has not filled the prescription yet. -Will start on ciprofloxacin. Continue to monitor urine culture. Bilateral lower extremity edema, improving. -A bilateral ultrasound was done yesterday in the ED, no reports of DVT in either extremity. -A left ankle x-ray was also done with no acute abnormalities, soft tissue swelling present. -Supportive care. Encourage elevation of legs. DVT prophylaxis: SCDs/TEDs. Heparin. Discharge Planning: Awaiting nuclear stress test today.
[2018-02-12] MEDS ORDERED: Acetaminophen 325 MG Tablet PO PRN (10:05)
[2018-02-12 10:06] LABS: Potassium 3.7 meq/L (3.5-5.1)
[2018-02-12 10:09] LABS: Calcium 8.7 mg/dL (8.5-10.1); Carbon Dioxide 24.1 meq/L (21.0-32.0)
[2018-02-12] MEDS ORDERED: Regadenoson Inj 0.4 MG/5 ML Syringe IV.PUSH ONE (10:57)
--- NOTE | 2018-02-12 12:00 | NM ---
EXAM DATE: 02/12/2018 10:36 AM EDT AGE/SEX: 52 years / Female INDICATIONS:Angina. . Mid chest pain for one day. CLINICAL DATA: This is the patient's initial encounter. Patient reports that signs and symptoms have been present for 1 day and indicates a pain score of 10/10. MEDICAL/SURGICAL HISTORY: Diverticulitis. Hysterectomy. COMPARISON: No prior exams available for comparison. No external comparison. DOSE: 8.7 mCi Tc 99m Myoview at rest 26.4 mCi [id number] at stress 0.4 mg Lexiscan STRESS SYMPTOMS: Shortness of breath. EJECTION FRACTION: 54 % TECHNIQUE: The patient underwent pharmacologic stress with infusion of prescribed dose. Continuous ECG tracing was monitored during stress. Gated SPECT imaging was performed after stress and conventi onal SPECT imaging was performed at rest. The examination was performed on a SPECT/CT scanner, both attenuation and non-corrected datasets were reviewed. FINDINGS: Distribution: The maximum perfused segment at stress is in the anterior lateral wall. Moderate gu t activity obscures inferior wall Perfusion Study: The pattern of perfusion at stress is within normal limits. Gated Study: There are intact wall motion and wall thickening without hypokinetic or dyskinetic segm ents. The ejection fraction is calculated at 54%. RISK CATEGORY: Low CONCLUSION: 1. Negative for stress-induced ischemia. 2. Moderate gut activity does obscure the inferior wall. Electronically signed by: Abhay Paz MD 02/12/2018 11:59 AM EDT
--- NOTE | 2018-02-12 14:58 | TR ---
Date Performed: 02/12/2018 Time Performed: 11:00:42 DOCTOR: Lane Dumont DRUG LIST: CLINICAL HISTORY: ANGINA REASON FOR TEST: Chest pain REASON FOR ENDING: OBSERVATION: CONCLUSION: COMMENTS: Lexiscan stress test was performed under standard four minute protocol. Radionuclide was injected one minute prior to ending the test. No electrocardiographic abormalities were present t o suggest ischemia. Nuclear imaging and interpretation are pending.
== END 2018-02-12 13:21 | disposition home or self-care (01) ==
LOC: PHED 13:39 → PHEDA 13:39 → PH3 15:57
PROVIDERS: ADMIT Internal Medicine; ATTEND Internal Medicine